=== PATIENT | male | born 1970 | race Caucasian/White ===

== ENCOUNTER → 2021-03-21 | Outpatient (CLI) | payer BC ==
[~2021-03-21] MED LIST: BACTROBAN OINT22 GM EXT; GLUCOPHAGE 500500 MG PO
== END ==
LOC: KOH-I 10:26
DX: R74.8 Abnormal levels of other serum enzymes (principal); K76.0 Fatty (change of) liver, not elsewhere classified; R16.0 Hepatomegaly, not elsewhere classified; Z90.49 Acquired absence of other specified parts of digestive tract
CPT/HCPCS: 76705

== ENCOUNTER 2021-09-09 17:46 | Emergency (ER) | payer BC | END 2021-09-09 19:08 | disposition left against medical advice (07) | LOC: ER1 17:46 | DX: Z53.21 Procedure and treatment not carried out due to patient leaving prior to being seen by health care provider (principal) ==